=== PATIENT | male | born 1985 | race American Indian/Alaskan Native ===

== ENCOUNTER 2020-02-03 06:40 | Emergency (ER) | payer SELFPAY ==
[2020-02-03 07:19] LABS: Basophils % (Auto) 0.7 % (0.0-1.8); Eosinophils % (Auto) 0.1 % (0.0-4.3); Hematocrit 42.8 % (35.5-45.6); Hemoglobin 14.1 gm/dl (11.8-15.2); Lymphocytes # (Auto) 1.7 K/mm3 (1.2-5.4); Lymphocytes % (Auto) 23.9 % (13.4-35.0); Mean Corpuscular HGB Conc 33 % (32-34); Mean Corpuscular Volume 93 fl (84-94); Monocytes # (Auto) 0.7 K/mm3 (0.0-0.8); Platelet Count 228 K/mm3 (140-440); Red Blood Count 4.59 M/mm3 (3.65-5.03); Red Cell Distribution Width 13.2 % (13.2-15.2)
[2020-02-03 07:52] LABS: BUN/Creatinine Ratio 8; Blood Urea Nitrogen 10 mg/dL (9-20); Hemolysis Index 9
--- NOTE | 2020-02-03 08:25 | Emergency Department Report ---
ED General Adult HPI - General Chief complaint: Psych Stated complaint: HALLUCINATING Time Seen by Provider: 02/03/20 08:20 Source: patient Mode of arrival: Ambulatory Limitations: No Limitations - History of Present Illness Initial comments: Patient is 34 years old male with no significant past medical history or psychiatric history according to the patient. Patient presented to the ER today complaining of generalized rash and itching started this morning. Patient stated that he was fine yesterday with no complaint. Patient describes his itching is mainly in the lower extremity and his back he also stated that he is having some itching in his throat. Patient denied any difficulty breathing or difficulty swallowing. He also denied any chest pain or shortness of breath. No fever or chills. Patient triaged as a psych for evaluation of hallucination however patient denying any hallucination and there is some physical evidence of finding skin rash. Patient also denied any previous psychiatric history. He also denied any visual or auditory hallucination. Patient denied any suicidal or homicidal ideation. - Related Data Previous Rx's Medication Instructions Recorded Last Taken Type DOXYCYCLINE Hyclate [Vibramycin 100 mg PO Q12HR #14 capsule 04/15/15 Unknown Rx CAP] Allergies Allergy/AdvReac Type Severity Reaction Status Date / Time Penicillins AdvReac Unknown Verified 04/15/15 12:11 ED Review of Systems ROS: Stated complaint: HALLUCINATING Other details as noted in HPI Comment: All other systems reviewed and negative Constitutional: denies: chills, fever Respiratory: denies: cough, shortness of breath, SOB with exertion Cardiovascular: denies: chest pain, palpitations Gastrointestinal: denies: abdominal pain, nausea, vomiting Skin: rash Psychiatric: denies: anxiety, depression, auditory hallucinations, visual mott llucinations, homicidal thoughts, suicidal thoughts ED Past Medical Hx - Past Medical History Previous Medical History?: Yes Hx Asthma: Yes - Surgical History Past Surgical History?: No - Social History Smoking Status: Current Every Day Smoker Substance Use Type: Alcohol - Medications Home Medications: Home Medications Medication Instructions Recorded Confirmed Last Taken Type DOXYCYCLINE Hyclate [Vibramycin 100 mg PO Q12HR #14 capsule 04/15/15 Unknown Rx CAP] ED Physical Exam - General Limitations: No Limitations General appearance: alert, in no apparent distress - Head Head exam: Present: atraumatic, normocephalic, normal inspection - Eye Eye exam: Present: normal appearance - ENT ENT exam: Present: normal exam, normal orophraynx, mucous membranes moist - Neck Neck exam: Present: normal inspection, full ROM. Absent: tenderness, meningismus, lymphadenopathy, thyromegaly - Respiratory Respiratory exam: Present: normal lung sounds bilaterally - Cardiovascular Cardiovascular Exam: Present: regular rate, normal rhythm, normal heart sounds - GI/Abdominal GI/Abdominal exam: Present: soft, normal bowel sounds. Absent: distended, tenderness, guarding, rebound, rigid, organomegaly, mass, bruit, pulsatile mass, hernia - Extremities Exam Extremities exam: Present: normal inspection, full ROM, normal capillary refill - Back Exam Back exam: Present: normal inspection, full ROM. Absent: CVA tenderness (R), CVA tenderness (L) - Neurological Exam Neurological exam: Present: alert, oriented X3, CN II-XII intact, normal gait, reflexes normal. Absent: motor sensory deficit - Psychiatric Psychiatric exam: Present: normal mood. Absent: agitated, anxious, flat affect, manic, homicidal ideation, suicidal ideation - Skin Skin exam: Present: warm, dry, intact, rash ED Course Vital Signs 02/03/20 02/03/20 06:47 06:48 Temperature 98.3 F Pulse Rate 119 H Respiratory 16 Rate Blood Pressure 166/117 O2 Sat by Pulse 96 Oximetry ED Medical Decision Making - Lab Data Result diagrams: 02/03/20 07:06 02/03/20 07:06 - Medical Decision Making Patient is 34 years old male with no significant past medical history or psychiatric history according to the patient. Patient presented to the ER today complaining of generalized rash and itching started this morning. Patient stated that he was fine yesterday with no complaint. Patient describes his itching is mainly in the lower extremity and his back he also stated that he is having some itching in his throat. Patient denied any difficulty breathing or difficulty swallowing. He also denied any chest pain or shortness of breath. No fever or chills. Patient triaged as a psych for evaluation of hallucination however patient denying any hallucination and there is some physical evidence of finding skin rash. Patient also denied any previous psychiatric history. He also denied any visual or auditory hallucination. Patient denied any suicidal or homicidal ideation. Labs reviewed and is unremarkable. I did not appreciate any acute psychiatric presentation with this patient. Patient will be treated for his a skin rash with Vistaril and advised to follow-up with his primary care physician in the next 2 to 3 days and to return to the ER if he develop any new symptoms. Critical care attestation.: If time is entered above; I have spent that time in minutes in the direct care of this critically ill patient, excluding procedure time. ED Disposition Clinical Impression: Skin rash Disposition: DC-01 TO HOME OR SELFCARE Is pt being admited?: No Condition: Stable Instructions: Acute Rash (ED) Referrals: PRIMARY CARE, [Primary Care Provider] - 3-5 Days
[2020-02-03] MEDS ORDERED: cloNIDine 0.1 MG TAB PO ONE (08:44)
[2020-02-03] MEDS ORDERED: cloNIDine 0.1 MG TAB ONE (08:46)
[2020-02-03 08:53] LABS: Bilirubin,Urine NEG (Negative); Blood,Urine SM (Negative); Color,Urine Yellow (Yellow); Mucus,Urine 3+ /HPF; Protein,Urine <15 mg/dL mg/dL (Negative); Urobilinogen,Urine < 2.0 mg/dL (<2.0)
[2020-02-03 09:26] VITALS: BP 185/123
[2020-02-03 09:46] LABS: Amphetamine Screen,Urine PRESUMPTIVE POSITIVE; Benzodiazepines Screen,Urine PRESUMPTIVE NEGATIVE; Cannabinoid Screen,Urine PRESUMPTIVE POSITIVE; Cocaine Screen,Urine PRESUMPTIVE POSITIVE; Methadone Screen,Urine PRESUMPTIVE NEGATIVE; Opiate Screen,Urine PRESUMPTIVE NEGATIVE
== END 2020-02-03 10:08 | disposition home or self-care (01) ==
LOC: ED 06:40
DX: R21 Rash and other nonspecific skin eruption (principal); J45.909 Unspecified asthma, uncomplicated; F17.200 Nicotine dependence, unspecified, uncomplicated; Z88.0 Allergy status to penicillin; Z79.899 Other long term (current) drug therapy
CPT/HCPCS: 36415; 80048; 80307; 80320; 81001; 85025; G0480

== ENCOUNTER 2020-07-11 22:47 | Emergency (ER) | payer SELFPAY ==
[2020-07-11 22:58] VITALS: BP 160/104
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
[2020-07-12] MEDS ORDERED: ACETAMINOPHEN 500 MG TAB PO ONE (01:08)
[2020-07-12] MEDS ORDERED: IBUPROFEN 600 MG TAB PO ONE (01:08)
== END 2020-07-12 01:32 | disposition home or self-care (01) ==
LOC: ED 22:47
DX: J45.901 Unspecified asthma with (acute) exacerbation (principal); M62.830 Muscle spasm of back; Z88.0 Allergy status to penicillin
CPT/HCPCS: 99283